=== PATIENT | male | born 1935 | race Caucasian/White ===

== ENCOUNTER → 2018-04-01 10:08 | Outpatient (CLI) | payer OTHER, SELFPAY ==
--- NOTE | 2018-04-01 | DI.US.S_ITS ---
PROCEDURE: US PERIP VENOUS LOW EXTREM LT INDICATIONS: PAIN IN LEFT LOWER LEG TECHNIQUE: Real-time imaging, as well as color and pulse Doppler interrogation, were performed of the lower extremity deep veins from the inguinal ligament to the popliteal fossa. COMPARISON: [facility], , [facility].DARVIN EXT BILAT, 02/12/2014, 11:59. FINDINGS: The deep veins are normally compressible, and free of intraluminal thrombus. Color and pulse Doppler demonstrate normal phasic intraluminal flow. There is normal augmentation response to distal compression maneuver. IMPRESSION: No visualized deep venous thrombosis. Dictated by: Eli Bueno M.D. on 04/01/2018 at 11:44 Approved by: Eli Bueno M.D. on 04/01/2018 at 11:44
== END ==
PROVIDERS: PCP Internal Medicine; Visit Provider Internal Medicine
DX: M79.662 Pain in left lower leg (principal)
CPT/HCPCS: 93971

== ENCOUNTER → 2018-10-08 09:36 | Outpatient (CLI) | payer OTHER, SELFPAY ==
[2018-10-08 11:07] LABS: BUN Creatinine Ratio 17.3 (6-22); Blood Urea Nitrogen 19 mg/dL (9-20); Calcium 9.6 mg/dL (8.4-10.2); Carbon Dioxide 30 mmol/L (22-32); Chloride 104 mmol/L (98-107); Cholesterol 202 mg/dL (140-199); Estimated Glomerular Filt Rate > 60.0 mL/min (>60); Glucose 97 mg/dL (80-110); HDL Cholesterol 34 mg/dL (40-60); HEMOLYSIS < 15 (0-50); LDL Cholesterol Calculated 138 mg/dL (<100); Potassium 4.4 mmol/L (3.4-5.1); Sodium 142 mmol/L (137-145); Triglycerides 148 mg/dL (35-150)
== END ==
PROVIDERS: PCP Internal Medicine; Visit Provider Internal Medicine
DX: E78.00 Pure hypercholesterolemia, unspecified (principal); I10 Essential (primary) hypertension
CPT/HCPCS: 36415; 80048; 80061

== ENCOUNTER → 2018-12-08 09:57 | Outpatient (CLI) | payer OTHER, SELFPAY ==
[2018-12-08 10:56] LABS: Cholesterol 109 mg/dL (140-199); HDL Cholesterol 30 mg/dL (40-60); LDL Cholesterol Calculated 55 mg/dL (<100); Triglycerides 121 mg/dL (35-150)
== END ==
PROVIDERS: PCP Internal Medicine; Visit Provider Internal Medicine
DX: E78.00 Pure hypercholesterolemia, unspecified (principal)
CPT/HCPCS: 36415; 80061

== ENCOUNTER → 2019-09-17 16:01 | Outpatient (CLI) | payer MEDICARE, SELFPAY ==
--- NOTE | 2019-09-17 | DI.US.S_ITS ---
PROCEDURE: US [facility] VENOUS LOW EXTREM LT INDICATIONS: LEFT LEG PAIN AND SWELLING TECHNIQUE: Real-time imaging, as well as color and pulse Doppler interrogation, were performed of the lower extremity deep veins from the inguinal ligament to the popliteal fossa. COMPARISON: [facility], [facility] VENOUS LOW EXTREM LT, 04/01/2018, 11:21. FINDINGS: The common femoral, femoral and popliteal veins are normally compressible, and free of intraluminal thrombus. Color and pulse Doppler demonstrate normal phasic intraluminal flow. There is normal augmentation response to distal compression maneuver. IMPRESSION: Negative for deep venous thrombosis. Dictated by: Stephan Doshi M.D. on 09/17/2019 at 16:02 Approved by: Stephan Doshi M.D. on 09/17/2019 at 16:02
== END ==
PROVIDERS: PCP Internal Medicine; Referring Provider Internal Medicine; Visit Provider Internal Medicine
DX: M79.662 Pain in left lower leg (principal); M79.89 Other specified soft tissue disorders
CPT/HCPCS: 93971

== ENCOUNTER → 2021-01-03 15:11 | Outpatient (CLI) | payer MEDICARE, SELFPAY ==
[2021-01-03 16:56] LABS: Add Manual Diff / Slide Review NO; Basophils Absolute Auto 100 /uL (0-100); Basophils Percent Auto 0.9 % (0-2); Eosinophils Absolute Auto 300 /uL (0-450); Hematocrit 45.2 % (41-53); Hemoglobin 15.4 g/dL (13.5-17.5); Lymphocytes Absolute Auto 1900 /uL (1100-4500); Lymphocytes Percent Auto 22.3 % (25-40); Mean Corpuscular Hemoglobin 31.4 PG (26-34); Mean Corpuscular Volume 92.1 fL (80-100); Monocytes Absolute Auto 1100 /uL (0-900); Monocytes Percent Auto 12.4 % (3-14); Neutrophils Absolute Auto 5100 /uL (1500-7000); Neutrophils Percent Auto 60.4 % (50-75); Platelet Count 214 X10^3/uL (150-400); Red Blood Cell Count 4.91 X10^6/uL (4.5-5.9); Red Cell Distribution Width 13.1 % (11.6-14.8); White Blood Cell Count 8.5 X10^3/uL (4.5-11.0)
[2021-01-03 17:07] LABS: HEMOLYSIS < 15 (0-50); Potassium 4.4 mmol/L (3.4-5.1)
[2021-01-03 17:08] LABS: Alanine Aminotransferase 26 IU/L (<50); Albumin 4.9 g/dL (3.5-5.0); Albumin Globulin Ratio 1.4 (1.0-2.8); Alkaline Phosphatase 75 U/L (38-126); Aspartate Aminotransferase 34 IU/L (17-59); BUN Creatinine Ratio 20.3 (6-22); Bilirubin Total 1.7 mg/dL (0.2-1.3); Blood Urea Nitrogen 26 mg/dL (9-20); Calcium 9.8 mg/dL (8.4-10.2); Carbon Dioxide 27 mmol/L (22-32); Chloride 104 mmol/L (98-107); Cholesterol 148 mg/dL (140-199); Estimated Glomerular Filt Rate 53.5 mL/min (>60); Globulin 3.4 g/dL (1.7-4.1); Glucose 103 mg/dL (80-110); HDL Cholesterol 30 mg/dL (40-60); LDL Cholesterol Calculated 84 mg/dL (<100); Sodium 142 mmol/L (137-145); Total Protein 8.3 g/dL (6.3-8.2); Triglycerides 172 mg/dL (35-150)
== END ==
PROVIDERS: PCP Internal Medicine; Referring Provider Internal Medicine; Visit Provider Internal Medicine
DX: I10 Essential (primary) hypertension (principal); E78.00 Pure hypercholesterolemia, unspecified
CPT/HCPCS: 36415; 80053; 80061; 85025

== ENCOUNTER → 2021-01-23 13:56 | Outpatient (CLI) | payer MEDICARE, SELFPAY ==
--- NOTE | 2021-01-23 14:01 | DI.RAD.S_ITS ---
PROCEDURE: XR KNEE LT 3V INDICATIONS: Left Knee Pain TECHNIQUE: 3 views of the left knee were acquired. COMPARISON: None. FINDINGS: Mild osteoarthritic changes in the femorotibial compartments of the left knee. Moderate osteoarthritic change in the patellofemoral compartment characterized by joint space narrowing with marginal osteophytosis. There is no knee joint effusion. No acute osseous finding. IMPRESSION: Moderate patellofemoral osteoarthritis. Dictated by: Kye Hernadez M.D. on 01/23/2021 at 16:00 Approved by: Kye Hernadez M.D. on 01/23/2021 at 16:02
== END ==
PROVIDERS: PCP Internal Medicine; Referring Provider Internal Medicine; Visit Provider Internal Medicine
DX: M25.562 Pain in left knee (principal); G89.29 Other chronic pain; M17.12 Unilateral primary osteoarthritis, left knee
CPT/HCPCS: 73562

== ENCOUNTER 2022-10-16 10:24 | Emergency (ER) | payer MEDICARE, SELFPAY ==
[2022-10-16] VITALS (10 sets, daily range): BP systolic 135–181; BP diastolic 62–81; PULSE 64–80; RESP 12–32; TEMP 36.9; O2SAT 94–97; BMI 30.7
--- NOTE | 2022-10-16 10:50 | DI.RAD.S_ITS ---
PROCEDURE: XR CHEST 1V INDICATIONS: short of breath TECHNIQUE: One view of the chest was acquired. COMPARISON: [facility], RG, XR CXR 1 VIEW, 07/17/1991, 2:49. FINDINGS: Surgical changes and devices: None. Lungs and pleura: Lungs are clear. No pleural effusions or pneumothorax. Mediastinum: Mediastinal contours appear normal. Heart size is normal. Bones and chest wall: No suspicious bony lesions. Overlying soft tissues appear unremarkable. IMPRESSION: No acute cardiopulmonary abnormality. Dictated by: Dipesh Jay M.D. on 10/16/2022 at 11:43 Approved by: Dipesh Jay M.D. on 10/16/2022 at 11:47
[2022-10-16 11:00] LABS: Add Manual Diff / Slide Review NO; Basophils Absolute Auto 100 /uL (0-100); Basophils Percent Auto 0.7 % (0-2); Eosinophils Absolute Auto 200 /uL (0-450); Eosinophils Percent Auto 1.4 % (2-4); Hematocrit 38.1 % (41-53); Hemoglobin 13.1 g/dL (13.5-17.5); Lymphocytes Absolute Auto 1000 /uL (1100-4500); Lymphocytes Percent Auto 7.7 % (25-40); Mean Corpuscular HGB Conc 34.3 % (30-36); Mean Corpuscular Hemoglobin 31.1 PG (26-34); Mean Corpuscular Volume 90.5 fL (80-100); Monocytes Absolute Auto 1800 /uL (0-900); Monocytes Percent Auto 14.4 % (3-14); Neutrophils Absolute Auto 9500 /uL (1500-7000); Neutrophils Percent Auto 75.8 % (50-75); Platelet Count 368 X10^3/uL (150-400); Red Blood Cell Count 4.21 X10^6/uL (4.5-5.9); Red Cell Distribution Width 13.5 % (11.6-14.8); White Blood Cell Count 12.6 X10^3/uL (4.5-11.0)
[2022-10-16 11:01] LABS: INR 1.3 (0.9-1.3); Prothrombin Time 14.6 SECONDS (10.1-12.7)
--- NOTE | 2022-10-16 11:07 | ED.SOB ---
HPI - SOB/Dyspnea General Chief Complaint: Shortness of Breath/Dyspnea Stated Complaint: SOB/cough/abd pain from coughing/bloody nose Time Seen by Provider: 10/16/22 10:31 Source: patient Mode of arrival: Ambulatory Limitations: no limitations History of Present Illness HPI Narrative: Patient is a 87-year-old male history of hypertension presents today with 3 weeks of shortness of breath. He said that he has had decrease in appetite and lost 15 lb over last 3 weeks. He has had some productive cough. Yesterday he developed fever but denies really any sweats or chills, is afebrile in the D. He is having some left upper quadrant like pain. Denies any orthopnea. No peripheral edema. Not coughing up any hemoptysis. Related Data Previous Rx's Medication Instructions Recorded amoxicillin 500 mg capsule 1,000 mg PO TID 5 days #30 caps 10/16/22 azithromycin 250 mg tablet See Rx Instructions PO .COMPLEX #6 10/16/22 tabs Allergies Allergy/AdvReac Type Severity Reaction Status Date / Time No Known Drug Allergies Allergy Verified 10/16/22 10:32 Review of Systems Review of Systems ROS Unobtainable: All systems reviewed & are unremarkable except as noted in HPI and below Patient History Social History Smoking Status: Never smoker Smoking Status: Never smoker alcohol intake frequency: 0-2 drinks per day Substance Use Type: does not use Exam Initial Vital Signs Initial Vital Signs: Vital Signs Temperature 98.5 F 10/16/22 10:27 Pulse Rate 80 10/16/22 10:27 Respiratory Rate 18 10/16/22 10:27 Blood Pressure 140/62 10/16/22 10:27 Pulse Oximetry 95 10/16/22 10:27 Oxygen Delivery Method Room Air 10/16/22 10:27 GENERAL: Alert elderly 87-year-old male HEENT: Head atraumatic,EOMI, pupils reactive, face symmetric, moist mucous membranes CARDIOVASCULAR: Regular rate and rhythm without murmurs, rubs or gallops. RESPIRATORY: Crackles at left lower lung base no respiratory distress no wheezes rales or rhonchi ABDOMEN: Soft, no distention. Normoactive bowel sounds all 4 quadrants. No guarding or rebound. Minimal left upper quadrant pain no right upper quadrant pain EXTREMITIES: Normal range of motion, no clubbing or edema. Neurovascularly intact NEUROLOGICAL: Alert and oriented x4. SKIN: Warm, dry, no laceration, no petechiae, no rashes or lesions. Scores CURB-65 Confusion: No BUN >19mg/dL (>7mmol/L): Yes Respiratory rate greater or equal to 30: No SBP <90mmHg or DBP less or equal to 60mmHg: No Age 65 or Older: Yes CURB-65 Total: 2 Score 0-1 Outpatient care, Score 2 Inpt vs. Obs, Score 3 or over Inpt admit with ICU for score of 4-5 Course Orders Ordered: ED Orders 10/16/22 10:45 Blood Culture Stat Complete Blood Count AUTO DIFF Stat Comprehensive Metabolic Panel Stat D Dimer Stat Lactate (Lactic Acid) Stat Lipase Stat NT-proBNP (BNP-Adult 18+) Stat PTT Partial Thromboplastin Arie Stat Procalcitonin Stat Prothrombin Time INR Stat Respiratory Panel (Film Array) Stat Troponin & CK Cardiac Panel Stat 10/16/22 10:50 XR chest 1V Stat EKG-12 Lead Stat 10/16/22 12:01 CT angio chest PE protocol Stat Vital Signs Vital signs: Vital Signs - 8 hr 10/16/22 10:27 10/16/22 10:37 10/16/22 11:00 Temperature 98.5 F Pulse Rate 80 76 68 Respiratory Rate 18 22 12 Blood Pressure 140/62 181/81 H Pulse Oximetry 95 97 97 Oxygen Delivery Method Room Air Room Air 10/16/22 11:01 10/16/22 11:01 10/16/22 11:30 Temperature Pulse Rate 68 74 Respiratory Rate 12 26 H Blood Pressure 140/65 Pulse Oximetry 94 94 Oxygen Delivery Method 10/16/22 11:31 10/16/22 11:31 10/16/22 12:00 Temperature Pulse Rate 73 Respiratory Rate 32 H Blood Pressure 135/64 156/70 H Pulse Oximetry 95 Oxygen Delivery Method 10/16/22 12:00 10/16/22 12:30 10/16/22 13:00 Temperature Pulse Rate 67 68 64 Respiratory Rate 16 21 22 Blood Pressure Pulse Oximetry 94 96 96 Oxygen Delivery Method 10/16/22 13:30 Temperature Pulse Rate 65 Respiratory Rate 19 Blood Pressure Pulse Oximetry 95 Oxygen Delivery Method MDM - SOB/Dyspnea Lab Data 10/16/22 10:45 10/16/22 10:45 Labs: Lab Results 10/16/22 10/16/22 10/16/22 Range/Units 10:45 10:45 10:45 WBC 12.6 H (4.5-11.0) X10^3/uL RBC 4.21 L (4.5-5.9) X10^6/uL Hgb 13.1 L (13.5-17.5) g/dL Hct 38.1 L (41-53) % MCV 90.5 (80-100) fL MCH 31.1 (26-34) PG MCHC 34.3 (30-36) % RDW 13.5 (11.6-14.8) % Plt Count 368 (150-400) X10^3/uL Neut % (Auto) 75.8 H (50-75) % Lymph % (Auto) 7.7 L (25-40) % [place] % (Auto) 14.4 H (3-14) % Eos % (Auto) 1.4 L (2-4) % Baso % (Auto) 0.7 (0-2) % Neut # (Auto) 9500 H (2877-5050) /uL Lymph # (Auto) 1000 L (4942-9410) /uL [place] # (Auto) 1800 H (0-900) /uL Eos # (Auto) 200 (0-450) /uL Baso # (Auto) 100 (0-100) /uL PT 14.6 H (10.1-12.7) SECONDS INR 1.3 (0.9-1.3) APTT (26-36) SECONDS D-Dimer 1962 H (<500) ng/ml Sodium 139 (137-145) mmol/L Potassium 3.8 (3.4-5.1) mmol/L Chloride 105 (98-107) mmol/L Carbon Dioxide 27 (22-32) mmol/L BUN 28 H (9-20) mg/dL Creatinine 1.34 H (0.66-1.25) mg/dL Estimated GFR 52 L (>60) mL/min BUN/Creatinine Ratio 20.9 (6-22) Glucose 123 H (80-110) mg/dL Lactate (0.7-2.1) mmol/L Calcium 8.9 (8.4-10.2) mg/dL Total Bilirubin 2.0 H (0.2-1.3) mg/dL AST 215 H (17-59) IU/L ALT 222 H (<50) IU/L Alkaline Phosphatase 89 (38-126) U/L Total Creatine Kinase 230 H (55-170) U/L CK-MB (CK-2) TNP CK-MB (CK-2) Rel Index TNP Troponin I < 0.012 (0.01-0.034) ng/mL NT-Pro-B Natriuret Pep 326 (<450) pg/mL Total Protein 7.7 (6.3-8.2) g/dL Albumin 4.0 (3.5-5.0) g/dL Globulin 3.7 (1.7-4.1) g/dL Albumin/Globulin Ratio 1.1 (1.0-2.8) Lipase (23-300) U/L Procalcitonin 0.23 (<0.5) ng/mL Chlamy pneumoniae PCR (Not Detect) Adenovirus (PCR) (Not Detect) B. pertussis DNA (PCR) (Not Detecte) B.parapertussis DNA PCR (Not Detecte) Coronavirus OC43 (PCR) (Not Detect) Coronavirus HKU1 (PCR) (Not Detect) Coronavirus 229E (PCR) (Not Detect) SARS-CoV-2 (PCR) (Not Detecte) Coronavirus NL63 (PCR) (Not Detect) Human Metapneumovir PCR (Not Detect) Influenza Type A (PCR) (Not Detect) Influenza Type B (PCR) (Not Detect) M. pneumoniae (PCR) (Not Detect) Parainfluenza 1 (PCR) (Not Detect) Parainfluenza 2 (PCR) (Not Detect) Parainfluenza 3 (PCR) (Not Detect) Parainfluenza 4 (PCR) (Not Detect) RSV (PCR) (Not Detect) Entero/Rhino (PCR) (Not Detect) 10/16/22 10/16/22 10/16/22 Range/Units 10:45 10:45 10:45 WBC (4.5-11.0) X10^3/uL RBC (4.5-5.9) X10^6/uL Hgb (13.5-17.5) g/dL Hct (41-53) % MCV (80-100) fL MCH (26-34) PG MCHC (30-36) % RDW (11.6-14.8) % Plt Count (150-400) X10^3/uL Neut % (Auto) (50-75) % Lymph % (Auto) (25-40) % [place] % (Auto) (3-14) % Eos % (Auto) (2-4) % Baso % (Auto) (0-2) % Neut # (Auto) (6221-2390) /uL Lymph # (Auto) (2231-2820) /uL [place] # (Auto) (0-900) /uL Eos # (Auto) (0-450) /uL Baso # (Auto) (0-100) /uL PT (10.1-12.7) SECONDS INR (0.9-1.3) APTT 30 (26-36) SECONDS D-Dimer (<500) ng/ml Sodium (137-145) mmol/L Potassium (3.4-5.1) mmol/L Chloride (98-107) mmol/L Carbon Dioxide (22-32) mmol/L BUN (9-20) mg/dL Creatinine (0.66-1.25) mg/dL Estimated GFR (>60) mL/min BUN/Creatinine Ratio (6-22) Glucose (80-110) mg/dL Lactate 2.1 (0.7-2.1) mmol/L Calcium (8.4-10.2) mg/dL Total Bilirubin (0.2-1.3) mg/dL AST (17-59) IU/L ALT (<50) IU/L Alkaline Phosphatase (38-126) U/L Total Creatine Kinase (55-170) U/L CK-MB (CK-2) CK-MB (CK-2) Rel Index Troponin I (0.01-0.034) ng/mL NT-Pro-B Natriuret Pep (<450) pg/mL Total Protein (6.3-8.2) g/dL Albumin (3.5-5.0) g/dL Globulin (1.7-4.1) g/dL Albumin/Globulin Ratio (1.0-2.8) Lipase (23-300) U/L Procalcitonin (<0.5) ng/mL Chlamy pneumoniae PCR Not detected (Not Detect) Adenovirus (PCR) Not detected (Not Detect) B. pertussis DNA (PCR) Not detected (Not Detecte) B.parapertussis DNA PCR Not detected (Not Detecte) Coronavirus OC43 (PCR) Not detected (Not Detect) Coronavirus HKU1 (PCR) Not detected (Not Detect) Coronavirus 229E (PCR) Not detected (Not Detect) SARS-CoV-2 (PCR) Not detected (Not Detecte) Coronavirus NL63 (PCR) Not detected (Not Detect) Human Metapneumovir PCR Not detected (Not Detect) Influenza Type A (PCR) Not detected (Not Detect) Influenza Type B (PCR) Not detected (Not Detect) M. pneumoniae (PCR) Not detected (Not Detect) Parainfluenza 1 (PCR) Not detected (Not Detect) Parainfluenza 2 (PCR) Not detected (Not Detect) Parainfluenza 3 (PCR) Not detected (Not Detect) Parainfluenza 4 (PCR) Not detected (Not Detect) RSV (PCR) Not detected (Not Detect) Entero/Rhino (PCR) Not detected (Not Detect) 10/16/22 10/16/22 Range/Units 10:45 13:14 WBC (4.5-11.0) X10^3/uL RBC (4.5-5.9) X10^6/uL Hgb (13.5-17.5) g/dL Hct (41-53) % MCV (80-100) fL MCH (26-34) PG MCHC (30-36) % RDW (11.6-14.8) % Plt Count (150-400) X10^3/uL Neut % (Auto) (50-75) % Lymph % (Auto) (25-40) % [place] % (Auto) (3-14) % Eos % (Auto) (2-4) % Baso % (Auto) (0-2) % Neut # (Auto) (0813-5386) /uL Lymph # (Auto) (3937-9321) /uL [place] # (Auto) (0-900) /uL Eos # (Auto) (0-450) /uL Baso # (Auto) (0-100) /uL PT (10.1-12.7) SECONDS INR (0.9-1.3) APTT (26-36) SECONDS D-Dimer (<500) ng/ml Sodium (137-145) mmol/L Potassium (3.4-5.1) mmol/L Chloride (98-107) mmol/L Carbon Dioxide (22-32) mmol/L BUN (9-20) mg/dL Creatinine (0.66-1.25) mg/dL Estimated GFR (>60) mL/min BUN/Creatinine Ratio (6-22) Glucose (80-110) mg/dL Lactate 1.3 (0.7-2.1) mmol/L Calcium (8.4-10.2) mg/dL Total Bilirubin (0.2-1.3) mg/dL AST (17-59) IU/L ALT (<50) IU/L Alkaline Phosphatase (38-126) U/L Total Creatine Kinase (55-170) U/L CK-MB (CK-2) CK-MB (CK-2) Rel Index Troponin I (0.01-0.034) ng/mL NT-Pro-B Natriuret Pep (<450) pg/mL Total Protein (6.3-8.2) g/dL Albumin (3.5-5.0) g/dL Globulin (1.7-4.1) g/dL Albumin/Globulin Ratio (1.0-2.8) Lipase 73 (23-300) U/L Procalcitonin (<0.5) ng/mL Chlamy pneumoniae PCR (Not Detect) Adenovirus (PCR) (Not Detect) B. pertussis DNA (PCR) (Not Detecte) B.parapertussis DNA PCR (Not Detecte) Coronavirus OC43 (PCR) (Not Detect) Coronavirus HKU1 (PCR) (Not Detect) Coronavirus 229E (PCR) (Not Detect) SARS-CoV-2 (PCR) (Not Detecte) Coronavirus NL63 (PCR) (Not Detect) Human Metapneumovir PCR (Not Detect) Influenza Type A (PCR) (Not Detect) Influenza Type B (PCR) (Not Detect) M. pneumoniae (PCR) (Not Detect) Parainfluenza 1 (PCR) (Not Detect) Parainfluenza 2 (PCR) (Not Detect) Parainfluenza 3 (PCR) (Not Detect) Parainfluenza 4 (PCR) (Not Detect) RSV (PCR) (Not Detect) Entero/Rhino (PCR) (Not Detect) Imaging Data Chest x-ray: Radiologist's Impression: PROCEDURE:? XR CHEST 1V ? INDICATIONS:? short of breath ? TECHNIQUE:? One view of the chest was acquired.? ? COMPARISON:? [facility], RG, XR CXR 1 VIEW, 07/17/1991, 2:49. ? FINDINGS:? ? Surgical changes and devices:? None.? ? Lungs and pleura:? Lungs are clear.? No pleural effusions or pneumothorax.? ? Mediastinum:? Mediastinal contours appear normal.? Heart size is normal.? ? Bones and chest wall:? No suspicious bony lesions.? Overlying soft tissues appear unremarkable.? ? IMPRESSION:? No acute cardiopulmonary abnormality. ? ? ? Dictated by: Dipesh Jay M.D. on 10/16/2022 at 11:43? CT scan - chest: Radiologist's Impression: PROCEDURE:? CT ANGIO CHEST PE PROTOCOL ? INDICATIONS:? + dimer, sob ? TECHNIQUE:? After the administration of intravenous contrast, 2 mm thick sections acquired from the pulmonary apices to the posterior costophrenic angles.? 3-dimensional maximum intensity projection (MIP) coronal and sagittal reformats were then acquired through the thorax.? For radiation dose reduction, the following was used:? automated exposure control, adjustment of mA and/or kV according to patient size.? ? COMPARISON:? None. ? FINDINGS:? Image quality:? Excellent.? ? Pulmonary arteries:? Pulmonary arteries are normal in size, and demonstrate no intraluminal filling defects to suggest central pulmonary embolism.? ? Lungs and pleura:? Bronchial wall thickening and bilateral patchy ground-glass opacity.? Distal mucus airway plugging.? Central airways are clear.? No pleural effusions or pneumothorax.? ? Mediastinum:? Heart size is normal, without pericardial effusion.? No mediastinal or hilar adenopathy.? Thoracic aorta is normal in caliber and enhancement.? Esophagus is normal in caliber, without hiatal hernia.? ? Bones and chest wall:? No suspicious bony lesions.? Ribs and thoracic spine appear intact throughout.? Thyroid gland is unremarkable.? No axillary or supraclavicular adenopathy.? ? Abdomen:? Visualized upper abdominal solid organs appear normal in the early arterial phase of enhancement.? Post cholecystectomy.? ? IMPRESSION:? 1. No pulmonary embolism. ? 2. Bilateral patchy ground-glass opacity and bronchial wall thickening with distal mucus airway plugging.? Findings most consistent with a bronchitis or pneumonia. ? ? ? Dictated by: Dipesh Jay M.D. on 10/16/2022 at 13:01 ? ? Approved by: Dipesh Jay M.D. on 10/16/2022 at 13:08 ? ECG Data Interpretation: Sinus rhythm rate 72 HI interval 200 QRS [address] changes or T-wave inversions right bundle-branch block noted no priors to compare MDM Narrative Medical decision making narrative: Patient 87-year-old male history of hypertension presents today with cough and increasing shortness of breath, concern for infectious etiology, viral panel is negative. He has some leukocytosis 12.6, lactate 2.1 x-ray does not show any pneumonia or pneumothorax. There is no evidence of a congestive heart failure he is not hypoxic. D-dimer was added in his elevated at 1900, this does not age correct and therefore because there is no obvious other cause of his shortness of breath CT angio was done which is concerning for patchy ground glass opacity and bronchial wall thickening consistent with bronchitis or pneumonia. At this time he is not meeting any sort of admission criteria he is not tachypneic hypoxic no sign of severe sepsis. Curb 65 score is 2 his BUN is chronically elevated and has been since 2020 at this time I feel comfortable treating as an outpatient he is given amoxicillin and azithromycin. Discharge Plan Departure Patient Disposition: Home Clinical Impression: Pneumonia, Elevated liver enzymes Instructions: Atypical Pneumonia Activity Restrictions/Additional Instructions: *You have been diagnosed with probable pneumonia *What to do: At this time your blood work is reassuring although your liver enzymes are slightly elevated. Please be sure to have these rechecked. *Continue to take medications as directed--> [facility] Amoxicillin 1000 mg 3 times a day for 5 days Azithromycin take as directed for 5 days *Follow up with your primary care provider in 2-3 days or call [phone] *Return to ER if you should have increasing shortness of breath abdominal pain nausea vomiting fever or any new, worsening or concerning symptoms Prescriptions: New amoxicillin 500 mg capsule 1,000 mg PO TID 5 Days Qty: 30 0RF azithromycin 250 mg tablet See Rx Instructions PO .COMPLEX Qty: 6 0RF Rx Instructions: For 250 mg dose pack: take 500 mg today (day 1), then 250 mg for 4 days (days 2-5) Referrals: Alexi Martins MD [Primary Care Provider] - Stand Alone Forms: Patient Portal/API
[2022-10-16 11:09] LABS: D Dimer 1962 ng/ml (<500)
[2022-10-16 11:16] LABS: PTT Partial Thromboplastin Tim 30 SECONDS (26-36)
[2022-10-16 11:21] LABS: Lactate (Lactic Acid) 2.1 mmol/L (0.7-2.1)
[2022-10-16 11:23] LABS: Alanine Aminotransferase 222 IU/L (<50); Albumin Globulin Ratio 1.1 (1.0-2.8); Alkaline Phosphatase 89 U/L (38-126); Aspartate Aminotransferase 215 IU/L (17-59); BUN Creatinine Ratio 20.9 (6-22); Blood Urea Nitrogen 28 mg/dL (9-20); Calcium 8.9 mg/dL (8.4-10.2); Carbon Dioxide 27 mmol/L (22-32); Chloride 105 mmol/L (98-107); Creatine Kinase 230 U/L (55-170); Estimated Glomerular Filt Rate 52 mL/min (>60); Globulin 3.7 g/dL (1.7-4.1); Glucose 123 mg/dL (80-110); HEMOLYSIS < 15 (0-50); Potassium 3.8 mmol/L (3.4-5.1); Sodium 139 mmol/L (137-145); Total Protein 7.7 g/dL (6.3-8.2)
[2022-10-16 11:35] LABS: NT-proBNP (BNP-Adult 18+) 326 pg/mL (<450); Troponin I < 0.012 ng/mL (0.01-0.034)
[2022-10-16 11:39] LABS: Procalcitonin 0.23 ng/mL (<0.5)
[2022-10-16 11:49] LABS: Adenovirus Not Detected (Not Detect); B. parapertussis Not Detected (Not Detecte); Bordetella pertussis Not Detected (Not Detecte); Chlamydophila pneumoniae Not Detected (Not Detect); Coronavirus 229E Not Detected (Not Detect); Coronavirus HKU1 Not Detected (Not Detect); Coronavirus NL 63 Not Detected (Not Detect); Coronavirus OC43 Not Detected (Not Detect); Human Metapneumovirus Not Detected (Not Detect); Human Rhinovirus/Enterovirus Not Detected (Not Detect); Influenza A Not Detected (Not Detect); Influenza B Not Detected (Not Detect); Mycoplasma pneumoniae Not Detected (Not Detect); Parainfluenza Virus 1 Not Detected (Not Detect); Parainfluenza Virus 2 Not Detected (Not Detect); Parainfluenza Virus 3 Not Detected (Not Detect); Parainfluenza Virus 4 Not Detected (Not Detect); Respiratory Syncytial Virus Not Detected (Not Detect); SARS- CoV-2 Not Detected (Not Detecte)
--- NOTE | 2022-10-16 12:01 | DI.CT.S_ITS ---
PROCEDURE: CT ANGIO CHEST PE PROTOCOL INDICATIONS: + dimer, sob TECHNIQUE: After the administration of intravenous contrast, 2 mm thick sections acquired from the pulmonary apices to the posterior costophrenic angles. 3-dimensional maximum intensity projection (MIP) coronal and sagittal reformats were then acquired through the thorax. For radiation dose reduction, the following was used: automated exposure control, adjustment of mA and/or kV according to patient size. COMPARISON: None. FINDINGS: Image quality: Excellent. Pulmonary arteries: Pulmonary arteries are normal in size, and demonstrate no intraluminal filling defects to suggest central pulmonary embolism. Lungs and pleura: Bronchial wall thickening and bilateral patchy ground-glass opacity. Distal mucus airway plugging. Central airways are clear. No pleural effusions or pneumothorax. Mediastinum: Heart size is normal, without pericardial effusion. No mediastinal or hilar adenopathy. Thoracic aorta is normal in caliber and enhancement. Esophagus is normal in caliber, without hiatal hernia. Bones and chest wall: No suspicious bony lesions. Ribs and thoracic spine appear intact throughout. Thyroid gland is unremarkable. No axillary or supraclavicular adenopathy. Abdomen: Visualized upper abdominal solid organs appear normal in the early arterial phase of enhancement. Post cholecystectomy. IMPRESSION: 1. No pulmonary embolism. 2. Bilateral patchy ground-glass opacity and bronchial wall thickening with distal mucus airway plugging. Findings most consistent with a bronchitis or pneumonia. Dictated by: Dipesh Jay M.D. on 10/16/2022 at 13:01 Approved by: Dipesh Jay M.D. on 10/16/2022 at 13:08
[2022-10-16 12:53] LABS: Reflexed Lactate in 2 Hours Y
[2022-10-16 13:44] LABS: Lactate 2HR (Lactic Acid Rflx) 1.3 mmol/L (0.7-2.1)
[2022-10-16 13:51] LABS: Lipase 73 U/L (23-300)
== END 2022-10-16 14:05 | disposition home or self-care (01) ==
PROVIDERS: Emergency Provider Emergency Medicine; PCP Internal Medicine
DX: J18.9 Pneumonia, unspecified organism (principal); R74.01 Elevation of levels of liver transaminase levels; R03.0 Elevated blood-pressure reading, without diagnosis of hypertension
CPT/HCPCS: 36415; 71045; 71275; 80053; 82550; 83605; 83690; 83880; 84145; 84484; 85025; 85379; 85610; 85730; 87040; 87633; 93005; 93010; 99284

== ENCOUNTER → 2023-02-05 08:27 | Outpatient (CLI) | payer MEDICARE, SELFPAY ==
[2023-02-05 09:44] LABS: Add Manual Diff / Slide Review NO; Basophils Absolute Auto 100 /uL (0-100); Eosinophils Absolute Auto 400 /uL (0-450); Eosinophils Percent Auto 6.4 % (2-4); Hematocrit 42.8 % (41-53); Hemoglobin 14.9 g/dL (13.5-17.5); Lymphocytes Absolute Auto 1300 /uL (1100-4500); Lymphocytes Percent Auto 19.3 % (25-40); Mean Corpuscular Hemoglobin 31.2 PG (26-34); Mean Corpuscular Volume 89.2 fL (80-100); Monocytes Absolute Auto 600 /uL (0-900); Monocytes Percent Auto 9.7 % (3-14); Neutrophils Absolute Auto 4200 /uL (1500-7000); Neutrophils Percent Auto 63.6 % (50-75); Platelet Count 181 X10^3/uL (150-400); Red Cell Distribution Width 14.2 % (11.6-14.8); White Blood Cell Count 6.6 X10^3/uL (4.5-11.0)
[2023-02-05 09:56] LABS: Alanine Aminotransferase 21 IU/L (<50); Albumin 4.4 g/dL (3.5-5.0); Albumin Globulin Ratio 1.4 (1.0-2.8); Alkaline Phosphatase 74 U/L (38-126); Aspartate Aminotransferase 24 IU/L (17-59); BUN Creatinine Ratio 18.6 (6-22); Bilirubin Total 1.4 mg/dL (0.2-1.3); Bilirubin Unconjugated 1.4 mg/dL (0.0-1.1); Blood Urea Nitrogen 22 mg/dL (9-20); Calcium 9.5 mg/dL (8.4-10.2); Carbon Dioxide 29 mmol/L (22-32); Chloride 107 mmol/L (98-107); Cholesterol 145 mg/dL (140-199); Estimated Glomerular Filt Rate > 60 mL/min (>60); Globulin 3.1 g/dL (1.7-4.1); Glucose 103 mg/dL (80-110); HDL Cholesterol 38 mg/dL (40-60); HEMOLYSIS < 15 (0-50); LDL Cholesterol Calculated 83 mg/dL (<100); Potassium 4.4 mmol/L (3.4-5.1); Sodium 142 mmol/L (137-145); Total Protein 7.5 g/dL (6.3-8.2); Triglycerides 118 mg/dL (35-150)
[2023-02-05 10:49] LABS: Hep C Virus Ab w/Reflex Quant NEGATIVE s/c (NEGATIVE); Hepatitis B Surface Antigen NEGATIVE s/c (NEGATIVE)
[2023-02-07 07:35] LABS: Hepatitis B Surf Ab Qualitativ Non Reactive (.)
== END ==
PROVIDERS: PCP Family Medicine; Referring Provider Family Medicine; Visit Provider Family Medicine
DX: E78.5 Hyperlipidemia, unspecified (principal); I10 Essential (primary) hypertension; R79.89 Other specified abnormal findings of blood chemistry
CPT/HCPCS: 36415; 80053; 80061; 80076; 84443; 85025; 86706; 86803; 87340

== ENCOUNTER 2024-03-06 15:09 | Emergency (ER) | payer MEDICARE, SELFPAY ==
[2024-03-06 15:12] VITALS: BP 236/114; PULSE 69; RESP 16; TEMP 36.2; O2SAT 96
--- NOTE | 2024-03-06 15:17 | DI.RAD.S_ITS ---
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 COMPARISON: None. FINDINGS: Bones: No fractures or dislocations. Osteoarthritic changes are noted throughout left hand and wrist joints. No gross bony erosive changes. No suspicious bony lesions. Soft tissues: No suspicious soft tissue calcifications. Mild soft tissue swelling surrounding 4th PIP joint is seen. 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 No acute fracture or dislocation. Soft tissue swelling surrounding 4th PIP joint. Dictated by: Yariel Hernandez M.D. on 03/06/2024 at 15:51 Approved by: Yariel Hernandez M.D. on 03/06/2024 at 15:52
--- NOTE | 2024-03-06 15:17 | DI.RAD.S_ITS ---
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 COMPARISON: None. FINDINGS: Bones: Acute comminuted fracture involving 4th metacarpal shaft is seen with radial and dorsal displacement at fracture site and up to 2.5 mm diastasis. No other fracture or dislocation. Osteoarthritic changes are noted throughout right hand and wrist joints. Carpal bones are normally aligned. No suspicious bony lesions. Soft tissues: No suspicious soft tissue calcifications. IMPRESSION: Acute comminuted and slightly displaced 4th metacarpal shaft fracture as above. Dictated by: Yariel Hernandez M.D. on 03/06/2024 at 15:52 Approved by: Yariel Hernandez M.D. on 03/06/2024 at 15:58
--- NOTE | 2024-03-06 15:17 | DI.RAD.S_ITS ---
PROCEDURE: XR KNEE LT 3V INDICATIONS: fall, L knee strike, swelling pain TECHNIQUE: 3 views of the knee were acquired. COMPARISON: [facility], CR, XR KNEE LT 3V, 01/23/2021, 14:09. FINDINGS: Bones: No fractures or dislocations. [id number] tricompartmental osteoarthritis is seen most notably in medial femoral tibial compartment. No patellar subluxation. No suspicious bony lesions. Soft tissues: Small to moderate suprapatella joint effusion. No suspicious soft tissue calcifications. IMPRESSION: [id number] tricompartmental osteoarthritis. No acute fracture or dislocation. Small to moderate joint effusion. Dictated by: Yariel Hernandez M.D. on 03/06/2024 at 15:58 Approved by: Yariel Hernandez M.D. on 03/06/2024 at 16:02
--- NOTE | 2024-03-06 15:19 | DI.CT.S_ITS ---
PROCEDURE: CT HEAD/BRAIN WO CON INDICATIONS: fall hit head TECHNIQUE: Noncontrast 4.5 mm thick angled axial sections acquired from the foramen magnum to the vertex, with coronal and sagittal reformats. For radiation dose reduction, the following was used: automated exposure control, adjustment of mA and/or kV according to patient size. COMPARISON: [facility], CT, CT CERVICAL SPINE WO CON, 03/06/2024, 15:35. FINDINGS: Image quality: Mild streak artifact can be seen through the skull base. CSF spaces: Basal cisterns are patent. No extra-axial fluid collections. The ventricles are symmetric in size and shape. Brain: No intracranial bleeds or masses. There is cerebral volume loss for age, with resultant ventricular and sulcal prominence. There are periventricular and deep white matter chronic small vessel ischemic changes. There is intracranial internal carotid artery atherosclerosis. Skull and face: Calvarium and visualized facial bones appear intact, without suspicious lesions. Sinuses: Visualized sinuses and mastoids are clear. IMPRESSION: No acute intracranial hemorrhage is seen. No acute intracranial pathology. Note is made of age-appropriate brain parenchymal volume loss and chronic small vessel ischemic changes. Dictated by: Stephan Doshi M.D. on 03/06/2024 at 14:52 Approved by: Stephan Doshi M.D. on 03/06/2024 at 14:53
--- NOTE | 2024-03-06 15:19 | DI.CT.S_ITS ---
PROCEDURE: CT CERVICAL SPINE WO CON INDICATIONS: fall hit head TECHNIQUE: Noncontrast 3 mm thick sections acquired from the skull base to the T4 level. Sagittal and coronal reformats were then constructed. For radiation dose reduction, the following was used: automated exposure control, adjustment of mA and/or kV according to patient size. COMPARISON: [facility], CT, CT HEAD/BRAIN WO CON, 03/06/2024, 15:35. FINDINGS: Image quality: This examination is somewhat limited by quantum mottle artifact. Bones: No fractures or dislocations. Visualized superior ribs are intact. Focal degenerative change is seen involving the C1-C2 interface anteriorly. Minimal anterolisthesis can be seen at C3-C4 and C4-C5. There is moderate to severe disc space narrowing seen at C5-C6 and C6-C7. Posteriorly directed endplate osteophytes can be seen at C5-C6 and C6-C7. Multiple levels of significant facet hypertrophy can be seen. Soft tissues: Prevertebral soft tissues are normal in thickness. No paravertebral hematomas. No apical pneumothoraces. Atherosclerotic calcification is noted. IMPRESSION: No displaced fracture or traumatic subluxation. Multiple levels of underlying cervical spine degenerative change can be seen, which are worst inferiorly. Dictated by: Stephan Doshi M.D. on 03/06/2024 at 14:51 Approved by: Stephan Doshi M.D. on 03/06/2024 at 14:52
--- NOTE | 2024-03-06 15:35 | ED.FALL ---
HPI - Fall <Dayanna Escobar PA-C - Last Filed: 03/06/24 16:25> General Chief Complaint: Fall Stated Complaint: WIC; GLF, No Thinners Time Seen by Provider: 03/06/24 15:35 History of Present Illness HPI Narrative: Patient very pleasant 88-year-old male brought to the emergency room department today, drove himself after he had an incidental mechanical fall [employer]. Patient was leaving [employer], and he by accidentally tripped over 1 of the speed bumps. Fell landing on his hands and knee. Did not strike his head. No loss of consciousness. He was helped up by multiple people that saw the fall. Came to the emergency room department for his fall. He complains of left knee pain, left 4th finger discomfort and pain he took his ring off prior to being seen, right dorsal hand pain 3rd 4th and 5th metacarpal pain with soft tissue swelling. Minor skin abrasion to the left forehead. No neck pain, no headache, no neurologic symptoms. No other physical complaints. No treatment prior to being seen here in the emergency department. Related Data Home Medications Medication Instructions Recorded Confirmed latanoprost 0.005 % eye drops 1 drp EYE-BOTH QPM 02/05/23 03/03/24 timolol maleate 0.5 % eye drops drp EYE-BOTH 09/02/23 03/03/24 Previous Rx's Medication Instructions Recorded atorvastatin 10 mg tablet 10 mg PO DAILY cholesterol #90 tabs 03/03/24 losartan 50 mg tablet 50 mg PO DAILY high blood pressure 03/03/24 #90 tabs Allergies Allergy/AdvReac Type Severity Reaction Status Date / Time No Known Drug Allergies Allergy Verified 03/03/24 10:59 Review of Systems <Dayanna Escobar PA-C - Last Filed: 03/06/24 16:25> Review of Systems Narrative: Negative except as above Musculoskeletal Comments: Multiple musculoskeletal complaints Patient History <Dayanna Escobar PA-C - Last Filed: 03/06/24 16:25> Medical History Encounter for subsequent annual wellness visit (AWV) in [employer] patient CKD (chronic kidney disease) stage 3, GFR 30-59 ml/min Hyperlipidemia Benign essential HTN Elevated LFTs Family History Father Alzheimer's disease Mother Cancer Social History Smoking Status: Never smoker Smoking Status: Never smoker alcohol intake frequency: 0-2 drinks per day Substance Use Type: does not use Exam <Dayanna Escobar PA-C - Last Filed: 03/06/24 16:25> Initial Vital Signs Initial Vital Signs: Vital Signs Temperature 97.2 F L 03/06/24 15:12 Pulse Rate 69 03/06/24 15:12 Respiratory Rate 16 03/06/24 15:12 Blood Pressure 236/114 H 03/06/24 15:12 Pulse Oximetry 96 03/06/24 15:12 Oxygen Delivery Method Room Air 03/06/24 15:12 Reviewed patient is quite hypertensive Const General: cooperative, healthy appearing, comfortable, well developed, well groomed, No acute distress, No in distress, No anxious, No frail appearing and No ill appearing Nutritional Appearance: average body habitus and well nourished [facility] Head: normal to inspection, normocephalic and abrasion (Left forehead) Nose: external nose normal and nares normal Face and sinus: normal facial exam, sinuses nontender and face symmetric Eyes General: Yes appearance normal, both eyes and all related structures Pupils: PERRL EOM: EOM intact bilaterally Neck Neck: normal visual inspection, full ROM, trachea midline, supple and No tender Resp Auscultation: clear to auscultation bilaterally, no crackles, no rales, no rhonchi, no wheezes, no rubs and no vesicular sounds Tactile Fremitus: tactile fremitus absent Cardio Rate: regular rate Rhythm: regular rhythm Heart Sounds: S1 normal and S2 normal Skin Other: Of the left knee large abrasion, no current bleeding. No soft tissue swelling, no ecchymosis is noted. Neuro Other: Cranial nerves are grossly intact, cognition, speech, gait is all within normal limits Extrem Other: Range of motion, strength, pulses, cap refill preserved in the lower extremities. Large abrasion to the left knee, no obvious joint effusion, no deformity, Upper extremities, left hand examined nation he has some discomfort and pain and mild soft tissue swelling to the D IP joint of the left 4th finger. Pulses are present. Cap refill is preserved. No pain in the wrist or hand. No pain in the forearm elbow or shoulder. Range of motion is preserved. Exam of the right upper extremity no pain in the shoulder, humerus, elbow, forearm or mid hand. Range of motion is impaired due to soft tissue swelling and pain. Pain over the metacarpal of 3rd 4th and 5th. Cap refill is preserved. Pulses are present. X-ray shows a comminuted mid shaft 4th metacarpal fracture. Soft tissue swelling is noted, some mild ecchymosis is noted, limited range of motion due to discomfort and pain. Psych Other: Appearance, mental status, speech, movement, mood, affect, attitude, thought process, thought content and judgment are all within normal limits. <Geovanni Cm MD - Last Filed: 03/17/24 18:41> Initial Vital Signs Initial Vital Signs: Vital Signs Temperature 97.2 F L 03/06/24 15:12 Pulse Rate 69 03/06/24 15:12 Respiratory Rate 16 03/06/24 15:12 Blood Pressure 236/114 H 03/06/24 15:12 Pulse Oximetry 96 03/06/24 15:12 Oxygen Delivery Method Room Air 03/06/24 15:12 Procedures <Dayanna Escobar PA-C - Last Filed: 03/06/24 16:25> Orthopedic Splinting/Casting Injury #1: Time of procedure: 16:21 Side: right Upper Extremity Injury Location: hand Upper Extremity Immobilizer: ulnar gutter Post splinting neuro exam: intact Post splinting vascular exam: intact Placed by: Nursing Additional Comments: Sling Scores <Dayanna Escobar PA-C - Last Filed: 03/06/24 16:25> GCS Citation: 15 Course <Dayanna Escobar PA-C - Last Filed: 03/06/24 16:25> Orders Ordered: ED Orders 03/06/24 15:17 XR finger LT min 2V Stat XR hand RT min 3V Stat XR knee LT 3V Stat 03/06/24 15:19 CT cervical spine wo con Stat CT head/brain wo con Stat Reevaluation(s) Reevaluation #1: Patient offered Tylenol says he can take Tylenol at home Vital Signs Vital signs: Vital Signs - 8 hr 03/06/24 15:12 03/06/24 15:42 Temperature 97.2 F L Pulse Rate 69 Respiratory Rate 16 Blood Pressure 236/114 H 183/84 H Pulse Oximetry 96 Oxygen Delivery Method Room Air Reviewed <Geovanni Cm MD - Last Filed: 03/17/24 18:41> Orders Ordered: ED Orders 03/06/24 15:17 XR finger LT min 2V Stat XR hand RT min 3V Stat XR knee LT 3V Stat 03/06/24 15:19 CT cervical spine wo con Stat CT head/brain wo con Stat Vital Signs Vital signs: Vital Signs - 8 hr 03/06/24 15:12 03/06/24 15:42 Temperature 97.2 F L Pulse Rate 69 Respiratory Rate 16 Blood Pressure 236/114 H 183/84 H Pulse Oximetry 96 Oxygen Delivery Method Room Air MDM - Fall <Dayanna Escobar PA-C - Last Filed: 03/06/24 16:25> Imaging Data CT scan - head: Radiologist's Impression: [place] [address] CT Scan Report Signed Patient: Jose Manuel Bucio MR#: [id number] : 1935 Acct:[id number] Age/Sex: 88 / M Date of Service: 03/06/24 Loc: ED Accession Number: [id number] Procedure: CT cervical spine wo con Ordering Provider: Geovanni Cm MD PROCEDURE: CT CERVICAL SPINE WO CON INDICATIONS: fall hit head TECHNIQUE: Noncontrast 3 mm thick sections acquired from the skull base to the T4 level. Sagittal and coronal reformats were then constructed. For radiation dose reduction, the following was used: automated exposure control, adjustment of mA and/or kV according to patient size. COMPARISON: [facility], CT, CT HEAD/BRAIN WO CON, 03/06/2024, 15:35. FINDINGS: Image quality: This examination is somewhat limited by quantum mottle artifact. Bones: No fractures or dislocations. Visualized superior ribs are intact. Focal degenerative change is seen involving the C1-C2 interface anteriorly. Minimal anterolisthesis can be seen at C3-C4 and C4-C5. There is moderate to severe disc space narrowing seen at C5-C6 and C6-C7. Posteriorly directed endplate osteophytes can be seen at C5-C6 and C6-C7. Multiple levels of significant facet hypertrophy can be seen. Soft tissues: Prevertebral soft tissues are normal in thickness. No paravertebral hematomas. No apical pneumothoraces. Atherosclerotic calcification is noted. IMPRESSION: No displaced fracture or traumatic subluxation. Multiple levels of underlying cervical spine degenerative change can be seen, which are worst inferiorly. Dictated by: Stephan Doshi M.D. on 03/06/2024 at 14:51 Approved by: Stephan Doshi M.D. on 03/06/2024 at 14:52 CT - cervical spine: Radiologist's Impression: [place] [address] CT Scan Report Signed Patient: Jose Manuel Bucio MR#: [id number] : 1935 Acct:[id number] Age/Sex: 88 / M Date of Service: 03/06/24 Loc: ED Accession Number: [id number] Procedure: CT cervical spine wo con Ordering Provider: Geovanni Cm MD PROCEDURE: CT CERVICAL SPINE WO CON INDICATIONS: fall hit head TECHNIQUE: Noncontrast 3 mm thick sections acquired from the skull base to the T4 level. Sagittal and coronal reformats were then constructed. For radiation dose reduction, the following was used: automated exposure control, adjustment of mA and/or kV according to patient size. COMPARISON: [facility], CT, CT HEAD/BRAIN WO CON, 03/06/2024, 15:35. FINDINGS: Image quality: This examination is somewhat limited by quantum mottle artifact. Bones: No fractures or dislocations. Visualized superior ribs are intact. Focal degenerative change is seen involving the C1-C2 interface anteriorly. Minimal anterolisthesis can be seen at C3-C4 and C4-C5. There is moderate to severe disc space narrowing seen at C5-C6 and C6-C7. Posteriorly directed endplate osteophytes can be seen at C5-C6 and C6-C7. Multiple levels of significant facet hypertrophy can be seen. Soft tissues: Prevertebral soft tissues are normal in thickness. No paravertebral hematomas. No apical pneumothoraces. Atherosclerotic calcification is noted. IMPRESSION: No displaced fracture or traumatic subluxation. Multiple levels of underlying cervical spine degenerative change can be seen, which are worst inferiorly. Dictated by: Stephan Doshi M.D. on 03/06/2024 at 14:51 Approved by: Stephan Doshi M.D. on 03/06/2024 at 14:52 Extremity x-ray #1: Radiologist's Impression: [address] [address] XRay Report Signed Patient: Jose Manuel Bucio MR#: [id number] : 1935 Acct:[id number] Age/Sex: 88 / M Date of Service: 03/06/24 Loc: ED Accession Number: [id number] Procedure: XR finger LT min 2V Ordering Provider: Geovanni Cm MD PROCEDURE: XR FINGER LT MIN 2V INDICATIONS: fall outstretched arms, bruising swelling, unable to sports media TECHNIQUE: AP hand, 2 views of the 4th finger(s) acquired. COMPARISON: None. FINDINGS: Bones: No fractures or dislocations. Osteoarthritic changes are noted throughout left hand and wrist joints. No gross bony erosive changes. No suspicious bony lesions. Soft tissues: No suspicious soft tissue calcifications. Mild soft tissue swelling surrounding 4th PIP joint is seen. 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 No acute fracture or dislocation. Soft tissue swelling surrounding 4th PIP joint. Dictated by: Yariel Hernandez M.D. on 03/06/2024 at 15:51 Approved by: Yariel Hernandez M.D. on 03/06/2024 at 15:52 Extremity x-ray #2: Radiologist's Impression: [address] [address] XRay Report Signed Patient: Jose Manuel Bucio MR#: [id number] : 1935 Acct:[id number] Age/Sex: 88 / M Date of Service: 03/06/24 Loc: ED Accession Number: [id number] Procedure: XR hand RT min 3V Ordering Provider: Geovanni Cm MD PROCEDURE: XR HAND RT MIN 3V INDICATIONS: fall outstretched arms, bruising swelling, unable to sports media TECHNIQUE: 3 views of the hand(s) acquired. COMPARISON: None. FINDINGS: Bones: Acute comminuted fracture involving 4th metacarpal shaft is seen with radial and dorsal displacement at fracture site and up to 2.5 mm diastasis. No other fracture or dislocation. Osteoarthritic changes are noted throughout right hand and wrist joints. Carpal bones are normally aligned. No suspicious bony lesions. Soft tissues: No suspicious soft tissue calcifications. IMPRESSION: Acute comminuted and slightly displaced 4th metacarpal shaft fracture as above. Dictated by: Yariel Hernandez M.D. on 03/06/2024 at 15:52 Approved by: Yariel Hernandez M.D. on 03/06/2024 at 15:58 Extremity x-ray #3: Radiologist's Impression: [address] [address] XRay Report Signed Patient: Jose Manuel Bucio MR#: [id number] : 1935 Acct:[id number] Age/Sex: 88 / M Date of Service: 03/06/24 Loc: ED Accession Number: [id number] Procedure: XR knee LT 3V Ordering Provider: Geovanni Cm MD PROCEDURE: XR KNEE LT 3V INDICATIONS: fall, L knee strike, swelling pain TECHNIQUE: 3 views of the knee were acquired. COMPARISON: [facility], , XR KNEE LT 3V, 01/23/2021, 14:09. FINDINGS: Bones: No fractures or dislocations. Wyee-eg-pvvpqtgm tricompartmental osteoarthritis is seen most notably in medial femoral tibial compartment. No patellar subluxation. No suspicious bony lesions. Soft tissues: Small to moderate suprapatella joint effusion. No suspicious soft tissue calcifications. IMPRESSION: Xote-py-gdwutthx tricompartmental osteoarthritis. No acute fracture or dislocation. Small to moderate joint effusion. Dictated by: Yariel Hernandez M.D. on 03/06/2024 at 15:58 Approved by: Yariel Hernandez M.D. on 03/06/2024 at 16:02 [facility] Narrative Medical decision making narrative: Patient is a pleasant 88-year-old male presents to the emergency room department after mechanical fall [employer]. He tripped over 1 of the speed bumps. Falling onto outstretched hands in his knees. Presented to the emergency room department after the fall, currently not on blood thinners. No neurologic symptoms. No neck pain. Complains of left 4th finger pain, right hand pain, and left knee pain. CT scan of the head negative for any acute findings CT scan of the neck negative for any acute findings X-ray of the left finger negative for any acute findings arthritic changes associated with age some mild soft tissue swelling noted on x-ray of the tissue Left knee negative for any acute fractures, abrasion noted on exam X-ray of the right hand shows a comminuted slightly displaced fracture of the shaft of the 4th metacarpal. An ulnar gutter splint is placed over and secured 3rd through the 5th metacarpals, secured with an Reinaldo wrap Placed in a sling Ortho referral Ice Tylenol and ibuprofen at home as needed For discomfort and pain Differential diagnosis fall, facial contusion, musculoskeletal pain, knee abrasion, left finger contusion and sprain, right hand contusion, metacarpal fracture to the 4th shaft, with need for ortho follow-up. Discharge Plan Departure Patient Disposition: Home Clinical Impression: Fall Qualifiers: Encounter type: initial encounter Qualified Code(s): W19.XXXA - Unspecified fall, initial encounter Contusion of knee, left Qualifiers: Encounter type: initial encounter Qualified Code(s): S80.02XA - Contusion of left knee, initial encounter Fracture, metacarpal shaft Qualifiers: Encounter type: initial encounter Metacarpal bone: fourth Fracture type: closed Fracture alignment: displaced Laterality: right Qualified Code(s): S62.324A - Displaced fracture of shaft of fourth metacarpal bone, right hand, initial encounter for closed fracture Activity Restrictions/Additional Instructions: CT scan of your head and neck are negative for any acute fractures, arthritic changes associated with age. X-ray of your left finger is negative for acute fracture arthritic changes X-ray of your left knee is negative for any acute changes x-ray of the knee looks pretty good not a lot of arthritic changes Unfortunately your right hand you have a complex fracture of the right 4th metacarpal You will need to be put in a splint, you will need to be referred to Orthopedics to nearly to follow up with him. After the splint is applied we will put you in a sling, usually Tylenol helps with discomfort and pain with this type of injury once the splint is applied The orthopedic information will be on your discharge information Acute comminuted and slightly displaced 4th metacarpal shaft fracture as above. Prescriptions: No Action latanoprost 0.005 % drops 1 drp EYE-BOTH QPM timolol maleate 0.5 % drops EYE-BOTH losartan 50 mg tablet 50 mg PO DAILY Qty: 90 3RF atorvastatin 10 mg tablet 10 mg PO DAILY Qty: 90 3RF Referrals: Dante Hines DO [Primary Care Provider] - Tevin Delgadillo MD [Physician] - (You are being referred to the provider (or provider group) listed but no appointment has been made. Please call the provider?s office within the next day or two at the phone number above to make an appointment. Status post fall, Complex fracture to the 4th metacarpal shaft of the right hand) Stand Alone Forms: Patient Portal/API ED Sign-out <Geovanni Cm MD - Last Filed: 03/17/24 18:41> Cosign ED Attending Cosignature Attestation: I was immediately available in the department for consultation. ?This documentation has been reviewed and I agree with assessment and plan. Supervised by Geovanni Cm MD
[2024-03-06 15:42] VITALS: BP 183/84
[2024-03-06 16:29] VITALS: PULSE 72; RESP 16; O2SAT 99
== END 2024-03-06 16:33 | disposition home or self-care (01) ==
PROVIDERS: Emergency Provider Physician Assistant; PCP Family Medicine
DX: S62.324A Displaced fracture of shaft of fourth metacarpal bone, right hand, initial encounter for closed fracture (principal); S80.02XA Contusion of left knee, initial encounter; S09.90XA Unspecified injury of head, initial encounter; W01.0XXA Fall on same level from slipping, tripping and stumbling without subsequent striking against object, initial encounter
CPT/HCPCS: 29515; 70450; 72125; 73130; 73140; 73562; 99284

== ENCOUNTER → 2024-05-26 13:53 | Outpatient (CLI) | payer MEDICARE, SELFPAY ==
[2024-05-26 14:51] LABS: Alanine Aminotransferase 25 IU/L (<50); Albumin 4.7 g/dL (3.5-5.0); Albumin Globulin Ratio 1.7 (1.0-2.8); Alkaline Phosphatase 68 U/L (38-126); Aspartate Aminotransferase 29 IU/L (17-59); BUN Creatinine Ratio 25.4 (6-22); Bilirubin Total 1.4 mg/dL (0.2-1.3); Blood Urea Nitrogen 30 mg/dL (9-20); Calcium 9.1 mg/dL (8.4-10.2); Carbon Dioxide 25 mmol/L (22-32); Chloride 108 mmol/L (98-107); Estimated Glomerular Filt Rate 60 mL/min (>60); Globulin 2.7 g/dL (1.7-4.1); Glucose 89 mg/dL (80-110); HEMOLYSIS < 15 (0-50); Potassium 4.6 mmol/L (3.4-5.1); Sodium 142 mmol/L (137-145); Total Protein 7.4 g/dL (6.3-8.2)
== END ==
PROVIDERS: PCP Family Medicine; Referring Provider Family Medicine; Visit Provider Family Medicine
DX: Z00.00 Encounter for general adult medical examination without abnormal findings (principal); N18.30 Chronic kidney disease, stage 3 unspecified; E78.5 Hyperlipidemia, unspecified; I12.9 Hypertensive chronic kidney disease with stage 1 through stage 4 chronic kidney disease, or unspecified chronic kidney disease
CPT/HCPCS: 36415; 80053

== ENCOUNTER → 2025-04-26 16:34 | Outpatient (CLI) | payer MEDICARE, SELFPAY ==
[2025-04-26 17:57] LABS: Hematocrit 43.0 % (41-53); Hemoglobin 14.9 g/dL (13.5-17.5); Mean Corpuscular HGB Conc 34.8 % (30-36); Mean Corpuscular Hemoglobin 31.7 PG (26-34); Mean Corpuscular Volume 91.3 fL (80-100); Platelet Count 166 X10^3/uL (150-400)
[2025-04-26 18:23] LABS: Alanine Aminotransferase 28 IU/L (<50); Albumin 4.6 g/dL (3.5-5.0); Albumin Globulin Ratio 1.6 (1.0-2.8); Alkaline Phosphatase 78 U/L (38-126); Blood Urea Nitrogen 22 mg/dL (9-20); Calcium 9.1 mg/dL (8.4-10.2); Carbon Dioxide 27 mmol/L (22-32); Chloride 105 mmol/L (98-107); Cholesterol 156 mg/dL (140-199); Estimated Glomerular Filt Rate > 60 mL/min (>60); Globulin 2.9 g/dL (1.7-4.1); Glucose 75 mg/dL (70-99); HDL Cholesterol 36 mg/dL (40-60); HEMOLYSIS < 15 (0-50); Potassium 4.6 mmol/L (3.4-5.1); Sodium 141 mmol/L (137-145); Total Protein 7.5 g/dL (6.3-8.2); Triglycerides 267 mg/dL (35-150)
== END ==
LOC: LAB 16:35
PROVIDERS: PCP Family Medicine; Referring Provider Family Medicine; Visit Provider Family Medicine
DX: Z00.00 Encounter for general adult medical examination without abnormal findings (principal); I12.9 Hypertensive chronic kidney disease with stage 1 through stage 4 chronic kidney disease, or unspecified chronic kidney disease; N18.30 Chronic kidney disease, stage 3 unspecified; E78.5 Hyperlipidemia, unspecified
CPT/HCPCS: 36415; 80053; 80061; 85027